=== PATIENT | male | born 1970 | race Caucasian/White ===

== ENCOUNTER 2021-08-08 06:59 | Day surgery (SDC) | payer OTHER ==
[2021-08-03 12:45] LABS: BASOPHILS % (AUTO) 0.9 % (0-1); EOSINOPHILS # (AUTO) 0.1 X10'3 (0-0.9); EOSINOPHILS % (AUTO) 2.3 % (0-6); LYMPHOCYTES # (AUTO) 1.7 X10'3 (1.1-4.8); LYMPHOCYTES % (AUTO) 30.5 % (21-51); MEAN CORPUSCULAR HEMOGLOBIN 30.5 PG (27.0-31.0); MEAN CORPUSCULAR VOLUME 89.9 FL (78-98); MEAN PLATELET VOLUME 8.5 FL (7.4-10.4); MONOCYTES # (AUTO) 0.5 X10'3 (0-0.9); MONOCYTES % (AUTO) 9.4 % (2-12); NEUTROPHILS # (AUTO) 3.1 X10'3 (1.8-7.7); NEUTROPHILS % (AUTO) 56.9 % (42-75); PRE OP HEMATOCRIT 45.2 % (42.0-52.0); PRE OP HEMOGLOBIN 15.3 g/dL (14.0-17.9); PRE OP PLATELET COUNT 273 X10'3 (140-440); RED BLOOD COUNT 5.02 X10'6 (4.70-6.10); RED CELL DISTRIBUTION WIDTH 13.2 % (11.5-14.5)
[2021-08-03 12:47] LABS: ALBUMIN 3.9 G/DL (3.4-5.0); ALKALINE PHOSPHATASE 84 IU/L (46-116); BLOOD UREA NITROGEN 18 MG/DL (7-18); BUN/CREATININE RATIO 17.1 (5.4-32.0); CALCIUM 9.5 MG/DL (8.5-10.1); CHLORIDE 101 MMOL/L (99-107); CREATININE 1.05 MG/DL (0.60-1.10); PRE OP ALT 50 U/L (30-65); PRE OP ANION GAP 5 (8-16); PRE OP AST 27 U/L (10-37); PRE OP BILIRUB, TOTAL 0.4 MG/DL (0.0-1.0); PRE OP GLUCOSE 97 MG/DL (70-104); PRE OP POTASSIUM 3.6 MMOL/L (3.4-5.1); PRE OP SODIUM 138 MMOL/L (135-145); TOTAL CARBON DIOXIDE 31.7 MMOL/L (24-32); TOTAL PROTEIN 7.9 G/DL (6.4-8.2); eGFR 74 ML/MIN
[2021-08-08] VITALS (7 sets, daily range): BP systolic 118–136; BP diastolic 78–93
[~2021-08-08] VITALS: Ht 177.8 cm; Wt 103.8 kg
[~2021-08-08 06:59] MED LIST: BUPIVAcaine/PF 2.5 mg/ml (0.25%) 30ml vial ONE; HYDR12.55 PO; LIDOcaine 1% 30ml preserv. free vial ONE; LOSA50TA64 PO; SIMV-45 PO; clindamycin-Cleocin 900mg/D5W 50 ML IV ONE; famotidine 20mg tablet PO ONE; ringers solution, lacted 1,000 ML IV SCH
[2021-08-08] MEDS ORDERED: midazolam 1 mg/ML 2ml injection ONE (09:46)
[2021-08-08] MEDS ORDERED: fentaNYL /PF 50mcg/ml 5ml ampule ONE (09:46)
[2021-08-08] MEDS ORDERED: propofol inj 20 ML IV ONE (10:09)
[2021-08-08] MEDS ORDERED: dexamethasone sod phosphate 4mg/ml inj. ONE (10:09)
[2021-08-08] MEDS ORDERED: LIDOcaine 2% (20mg/ml) 5ml vial ONE (10:10)
[2021-08-08] MEDS ORDERED: rocuronium 10mg/ml inj IV ONE (10:10)
[2021-08-08] MEDS ORDERED: ondansetron/PF 4mg/2ml inj ONE (10:10)
[2021-08-08] MEDS ORDERED: glycopyrrolate 0.2mg/ml inj ONE (10:48)
[2021-08-08] MEDS ORDERED: neostigmine methylsulfate 1 MG/ML 10ml vial ONE (10:48)
--- NOTE | 2021-08-08 11:10 | NUR ---
Received from OR via , accompanied by Anesthesiologist and report given by Anesthesiolgist. AWAKENS TO VOICE. VITALS STABLE. DRESSING DI. HEATH PAIN. ABD SOFT.
[2021-08-08] MEDS ORDERED: morphine 4 MG/ML inj SYRINge IV PRN (11:15)
[2021-08-08] MEDS ORDERED: proCHLORperazine 10 MG/2 ml inj IV PRN (11:15)
[2021-08-08] MEDS ORDERED: labetalol 20mg/4ml (5mg/ml) syringe IV PRN (11:15)
[2021-08-08] MEDS ORDERED: HYDROcodone/acetaminophen 10/325mg tab PO PRN (11:15)
[2021-08-08] MEDS ORDERED: morphine 2 MG/ML inj. syringe IV PRN (11:15)
[2021-08-08] MEDS ORDERED: acetaminophen 1,000mg/100ml IV 100 ML IV PRN (11:15)
[2021-08-08] MEDS ORDERED: ringers solution, lacted 1,000 ML IV SCH (11:15)
[2021-08-08] MEDS ORDERED: hydrALAZINE 20mg/ml inj. IV PRN (11:15)
[2021-08-08] MEDS ORDERED: meperidine/PF 25mg/ml syringe IV PRN ×3 (11:15)
[2021-08-08] MEDS ORDERED: ondansetron/PF 4mg/2ml inj IV PRN (11:15)
[2021-08-08] MEDS ORDERED: ketorolac trometh. 30mg/ml inj. IV ONE (11:15)
--- NOTE | 2021-08-08 12:50 | NUR ---
Report called to receiving nurse. Transferred via [facility] . Special Issues communicated to receiving nurse.AWAKE AND ORIENTED. VITALS STABLE. DRESSINGS DI. HEATH PAIN. TO PAS RM [id number] AT THIS TIME.
--- NOTE | 2021-08-08 12:52 | NUR ---
PT ARRIVED TO [facility] VIA GURNEY ON ROOM AIR. 3 LAP SITES COVERED WITH BANDAIDS C/D/I. PT IS ALERT AND ORIENTED X4 AND HAS MET ALL DISCHARGE CRITERIA OTHER THAN BEING ABLE TO VOID. ALL DISCHARGE INSTRUCTIONS WERE REVIEWED WITH PT AND SPOUSE AND ALL QUESTIONS WERE ANSWERED. WILL CONTINUE TO MONITOR PT IN [facility] UNTIL HE CAN VOID. Addendum: 08/08/21 at 1315 by Maricarmen Casiano RN Amended: Links added.
--- NOTE | 2021-08-08 13:41 | NUR ---
BLADDER SCANNED PT AND THERE WAS 110ML SHOWING IN BLADDER. PT IS GOING TO TRY TO AMBULATE IN HALLWAY WITH SPOUSE. PT IS STEADY ON FEET AND NOT AT RISK FOR FALLS. WILL CONTINUE TO MONITOR. Addendum: 08/08/21 at 1342 by Maricarmen Casiano RN Amended: Links added.
--- NOTE | 2021-08-08 14:10 | NUR ---
AFTER CONSUMING FLUIDS, PT WAS ABLE TO URINATE 30ML. CONSULTED DR. WHITNEY TO ENSURE DISCHARGE WAS APPROPRIATE AND HE AGREED. EDUCATED PT THAT IF HE IS UNABLE TO ADEQUATELY URINATE BY 7-8 TONIGHT OR IF HE STARTS HAVING SEVERE PAIN TO RETURN TO ED. PT UNDERSTOOD. REMOVED IV ON LEFT HAND AND TOOK PT OUT VIA WHEELCHAIR WITHOUT COMPLICATIONS WHERE HIS DROVE HIM HOME IN A PRIVATE VEHICLE. Addendum: 08/08/21 at 1412 by Maricarmen Casiano RN Amended: Links added.
== END 2021-08-08 14:10 | disposition home or self-care (01) ==
LOC: PAS 06:59
PROVIDERS: ATTEND Surgery
DX: K40.90 Unilateral inguinal hernia, without obstruction or gangrene, not specified as recurrent (principal); D17.6 Benign lipomatous neoplasm of spermatic cord; I10 Essential (primary) hypertension; E78.5 Hyperlipidemia, unspecified; Z98.890 Other specified postprocedural states; Z72.89 Other problems related to lifestyle; Z79.899 Other long term (current) drug therapy; Z88.1 Allergy status to other antibiotic agents; Z80.42 Family history of malignant neoplasm of prostate; Z80.3 Family history of malignant neoplasm of breast; Z82.49 Family history of ischemic heart disease and other diseases of the circulatory system
CPT/HCPCS: 36415; 49650; 80053; 82948; 85025; 93005; C1781; J1100; J2250; J2405; J2704; J2710; J3010; J3490; J7030; J7120; S2900; U0003; U0005; Z7506; Z7508; Z7512; A4215; A4618